=== PATIENT | female | born 1960 | race Two or more races ===

== ENCOUNTER 2018-02-02 21:13 | Emergency (ER) | payer OTHER ==
[~2018-02-02] VITALS: Ht 160 cm; Wt 104.3 kg
[2018-02-02 21:26] VITALS: BP 141/62
[2018-02-02] MEDS ORDERED: IBUPROFEN 600 MG TABLET PO ONE ×2 (22:58→23:00)
== END 2018-02-02 23:05 | disposition home or self-care (01) ==
LOC: ER 21:13
DX: S93.401A Sprain of unspecified ligament of right ankle, initial encounter (principal); I10 Essential (primary) hypertension; W22.03XA Walked into furniture, initial encounter; Y93.89 Activity, other specified; Y92.89 Other specified places as the place of occurrence of the external cause; Y99.8 Other external cause status
CPT/HCPCS: 73610; 99284; A4606; Z7610

== ENCOUNTER 2022-05-11 19:14 | Emergency (ER) | payer OTHER ==
[~2022-05-11] VITALS: Ht 160 cm; Wt 104.3 kg
--- NOTE | 2022-05-11 19:30 | NUR ---
BIBFAMILY. R SIDE SORE THROAT WORSENING X 20 DAYS. PT TOLERATING R/A WELL WITH NO SOB. CONNECTED PT TO POX AND MONITOR.
[2022-05-11 19:32] VITALS: BP 157/83
[2022-05-11] MEDS ORDERED: AMOXICILLIN TRIHYDRATE 500 MG CAPSULE PO ONE (20:00)
[2022-05-11] MEDS ORDERED: IBUPROFEN 600 MG TABLET PO ONE (20:00)
[2022-05-11] MEDS ORDERED: AMOXICILLIN TRIHYDRATE 250 MG CAPSULE ONE (20:08)
[2022-05-11] MEDS ORDERED: IBUPROFEN 600 MG TABLET ONE (20:09)
[2022-05-11] MEDS ORDERED: AMOX500C2 PO ×3 (20:25→20:35)
[2022-05-11] MEDS ORDERED: IBUP-1955 PO ×2 (20:25→20:35)
--- NOTE | 2022-05-11 20:38 | NUR ---
Patient discharged to home in stable condition. Written and verbal after care instructions given. Patient verbalizes understanding of instruction. Pt ambulatory with a steady gait
== END 2022-05-11 20:38 | disposition home or self-care (01) ==
LOC: ER 19:18
DX: M54.2 Cervicalgia (principal); I10 Essential (primary) hypertension; E03.9 Hypothyroidism, unspecified